=== PATIENT | male | born 1995 | race Caucasian/White ===

== ENCOUNTER 2023-11-08 21:53 | Emergency (ER) | payer OTHER ==
[~2023-11-08] VITALS: Ht 198.1 cm; Wt 113.6 kg
[~2023-11-08 21:53] MED LIST: IBUP200C3 OR
[2023-11-08 23:13] VITALS: TEMP 98.7; O2SAT 100
[2023-11-08] MEDS: ONDANSETRON ODT 4 MG TAB PO ONE (23:23)
[2023-11-08] MEDS: MORPHINE SULFATE INJ 2 MG/ml SYRG IM ONE (23:24)
[2023-11-09] MEDS ORDERED: ZOFR4T PO (00:46)
[2023-11-09] MEDS ORDERED: IBUP-1456 PO (00:46)
[2023-11-09] MEDS ORDERED: CYCL-837 PO (00:46)
[2023-11-09] MEDS: PROMETHAZINE HCL 6.25 MG/5 ML ORAL SYRUP PO ONE (00:50)
[2023-11-09] MEDS: METOCLOPRAMIDE HCL 5MG/ml INJ 2ml VIAL IM ONE (00:57)
[2023-11-09 00:58] VITALS: BP 127/78; PULSE 69; RESP 20
[2023-11-09] MEDS: MORPHINE SULFATE INJ 2 MG/ml SYRG IM ONE (00:58)
== END 2023-11-09 01:06 | disposition home or self-care (01) ==
LOC: EDBD 21:53 → EDUNIT# 21:53 → ER 21:53
DX: G89.18 Other acute postprocedural pain (principal); M25.561 Pain in right knee
CPT/HCPCS: 96372; 99285; J2270; J2765; Q0162